=== PATIENT | male | born 1935 | race Caucasian/White ===

== ENCOUNTER → 2018-12-17 | Outpatient (CLI) | payer MEDICARE, OTHER ==
--- NOTE | 2018-12-18 14:38 | RADRPT ---
Echocardiogram Report Patient Name: JUANI PITTMANPatient ID: [id number] : 1935 (83y 4m)Study Date: 12/17/2018 11:20:07 AM Gender: MAccession #: [id number] Tech: Mickie Yeung RDCS Location: Renal impairement Ref.Physician: DANGELO CROCKER Height(Cm): BSA: Weight(Kg): Quality: AdequateOrder Physician: DANGELO CROCKER Account #: Procedures: Echocardiographic Report: Transthoracic echocardiogram with complete 2D, M-Mode, and doppler examination. Indications: Evaluate Left Ventricular function. Measurements: 2D/M Mode Doppler Measurement Value Normal Range Measurement Value Normal Range LVIDd 2D 4.9 [ 4.2 - 5.8 ] cm AV Peak Ham 1.3 [ 100.0 - 170.0 ] cm/sec LVIDs 2D 3.3 [ 2.5 - 4.0 ] cm AV Peak PG 6.0 [ 2.0 - 9.0 ] mmHg LVPWd 2D 0.8 [ 0.6 - 1.0 ] cm LVOT Peak Ham 0.9 [ 70.0 - 110.0 ] cm/sec IVSd 2D 0.9 [ 0.6 - 1.0 ] cm LVOT Peak PG 3.0 [ 2.0 - 6.0 ] mmHg AoR Diam 2D 2.0 [ 2.6 - 3.4 ] cm MV E Peak Ham 0.6 [ 60.0 - 130.0 ] cm/sec EDV 2D 112.0 [ 62.0 - 150.0 ] ml MV A Peak Ham 1.0 [ 100.0 - 120.0 ] cm/sec ESV 2D 44.1 [ 21.0 - 61.0 ] ml MV E/A 0.6 [ 0.8 - 1.5 ] ratio EF 2D 60.6 [ 52.0 - 72.0 ] percent MV Decel Time 222 [ 104 - 258 ] msec LA Dimen 2D 3.5 [ 3.0 - 4.0 ] cm Lat E` Ham 0.1 [ 10.0 - 15.0 ] cm/sec Lateral E/E` 10.2 [ 1.0 - 2.0 ] ratio Med E` Ham 0.1 cm/sec MV E/A 0.6 [ 0.8 - 1.5 ] ratio TR Peak Ham 2.6 [ 100.0 - 280.0 ] cm/sec TR Peak PG 27.0 mmHg RVSP 30.0 [ 10.0 - 36.0 ] mmHg RA Pressure 3.0 mmHg Findings: Left Ventricle: Normal left ventricular systolic function. Normal left ventricular cavity size. Normal left ventricular wall thickness. Ejection fraction is visually estimated at 60 %. Tissue Doppler/Mitral Doppler indices are consistent with impaired relaxation (Stage I diastolic dysfunction). Right Ventricle: Normal right ventricular size. Normal right ventricular systolic function. Left Atrium: There is mild enlargement of left atrium. Right Atrium: The right atrium is normal in size. Mitral Valve: Normal appearance of the mitral valve. Normal appearance and function of the mitral valve with trace physiologic regurgitation. Aortic Valve: Normal appearance of the aortic valve. No hemodynamically significant aortic stenosis by doppler. Mild aortic valve regurgitation. Tricuspid Valve: Normal appearance of the tricuspid valve. The estimated Peak RVSP is 30 mmHg. There is trace tricuspid regurgitation. Pericardium: Normal pericardium with no significant pericardial effusion. Aorta: Normal aortic root. IVC: Normal size and normal respiratory collapse consistent with normal right atrial pressure. Conclusions: Normal left ventricular systolic function. Normal left ventricular cavity size. Normal left ventricular wall thickness. Ejection fraction is visually estimated at 60 %. Tissue Doppler/Mitral Doppler indices are consistent with impaired relaxation (Stage I diastolic dysfunction). Mild aortic valve regurgitation. The estimated Peak RVSP is 30 mmHg. Normal size and normal respiratory collapse consistent with normal right atrial pressure. Electronically Signed By: Pastor Zamora 2018-12-18 14:38:29 PDT
== END | disposition home or self-care (01) ==
LOC: EKG 10:50
PROVIDERS: ATTEND Internal Medicine Nephrology
DX: I50.40 Unspecified combined systolic (congestive) and diastolic (congestive) heart failure (principal)
CPT/HCPCS: 93306